=== PATIENT | male | born 1965 ===

== ENCOUNTER 2017-01-30 19:04 | Emergency (ER) | payer SELFPAY ==
[2017-01-30 19:16] VITALS: BP 152/86
--- NOTE | 2017-01-30 19:26 | UC ---
Complaint Male HPI - HPI Summary HPI Summary: 51 YEAR OLD PRESENTS WITH COMPLAINS OF LEFT FLANK PAIN, FEVER, CHILL AND FATIGUE. PATIENT WAS SEEN AT [facility] AND DISCHARGED WITH TYLENOL FOR RENAL CALCULI. - History of Current Complaint Chief Complaint: UCBackPain Stated Complaint: FEVER,BILAT FLANK PAIN, HEMATURIA Time Seen by Provider: 01/30/17 19:24 - Allergies/Home Medications Allergies/Adverse Reactions: Allergies Allergy/AdvReac Type Severity Reaction Status Date / Time Ketorolac Tromethamine Allergy Rash Verified 01/30/17 19:20 [From Toradol] Metoclopramide [From Reglan] Allergy Rash Verified 01/30/17 19:20 Prochlorperazine Allergy Rash Verified 01/30/17 19:20 [From Compazine] Promethazine [From Phenergan] Allergy Rash Verified 01/30/17 19:20 contrast dye Allergy Anaphylatic Uncoded 01/30/17 19:20 Shock peanuts Allergy Anaphylatic Uncoded 01/30/17 19:20 Shock Home Medications: Home Medications Aspirin Low Dose CHEW TAB* [Aspirin Low Dose TAB*] 81 mg PO DAILY 01/30/17 [ History Confirmed 01/30/17] Multivitamins/Minerals TAB* [Thera M Plus TAB*] 1 tab PO DAILY 01/30/17 [ History Confirmed 01/30/17] PMH/Surg Hx/FS Hx/Imm Hx - Surgical History Surgical History: Yes Surgery Procedure, Year, and Place: right wrist reconstruction. right quad muscle repair, right calf reconstruction - Social History Alcohol Use: Rare Substance Use Type: None Smoking Status (MU): Never Smoked Tobacco Review of Systems Constitutional: Negative Skin: Negative Eyes: Negative ENT: Negative Respiratory: Negative Cardiovascular: Negative Gastrointestinal: Negative Genitourinary: Hematuria Motor: Negative Neurovascular: Negative Musculoskeletal: Negative Neurological: Negative Psychological: Negative All Other Systems Reviewed And Are Negative: Yes Physical Exam Triage Information Reviewed: Yes Vital Signs: Initial Vital Signs Temp 37.7 C 01/30/17 19:09 Pulse 124 01/30/17 19:09 Resp 16 01/30/17 19:09 BP 152/86 01/30/17 19:09 Pulse Ox 97 01/30/17 19:09 Eye Exam: Normal ENT Exam: Normal Dental Exam: Normal Neck exam: Normal Neck: Positive: 1 Respiratory Exam: Normal Cardiovascular Exam: Normal Abdominal Exam: Normal Abdomen Description: Positive: CVA Tenderness (L), Guarding Musculoskeletal Exam: Normal Neurological Exam: Normal Psychological Exam: Normal Skin Exam: Normal Complaint Male Course/Dx - Differential Dx/Diagnosis Provider Diagnoses: HEMATURIA Discharge - Discharge Plan Condition: Stable Disposition: AGAINST MEDICAL ADVICE Patient Education Materials: Kidney Stones (ED) Referrals: Non Staff,Doctor [Primary Care Provider] -
== END 2017-01-30 19:42 | disposition left against medical advice (07) ==
LOC: UCCORT 19:04
DX: R31.9 Hematuria, unspecified (principal); Z88.8 Allergy status to other drugs, medicaments and biological substances; Z88.6 Allergy status to analgesic agent; Z91.041 Radiographic dye allergy status; Z79.82 Long term (current) use of aspirin
CPT/HCPCS: 99202; G0463